=== PATIENT | male | born 1950 | race Two or more races ===

== ENCOUNTER 2022-09-22 22:01 | Emergency (ER) | payer MEDICARE, OTHER ==
[~2022-09-22] VITALS: Ht 175.3 cm; Wt 77.1 kg
--- NOTE | 2022-09-22 22:20 | NUR ---
COVID ANTIGEN SWAB COLLECTED AND SENT TO LAB
[2022-09-22 22:21] VITALS: BP 118/73
--- NOTE | 2022-09-22 23:41 | NUR ---
Patient discharged and ok to be booked. Written and verbal after care instructions given. Patient verbalizes understanding of instruction. [employer] escorted patient out.
== END 2022-09-22 23:44 ==
LOC: ER 22:03
DX: Z02.89 Encounter for other administrative examinations (principal); R05.9 Cough, unspecified; Z20.822 Contact with and (suspected) exposure to COVID-19
CPT/HCPCS: 99283; 87426; C9803